=== PATIENT | female | born 1950 | race Caucasian/White ===

== ENCOUNTER → 2017-07-10 | Outpatient (CLI) | payer OTHER, MEDICARE | LOC: CIMAGING 08:21 | PROVIDERS: ATTEND Family Medicine | DX: Z12.31 Encounter for screening mammogram for malignant neoplasm of breast (principal) | CPT/HCPCS: G0202 ==

== ENCOUNTER → 2017-09-16 | Outpatient (CLI) | payer OTHER, MEDICARE | LOC: BRMIMAGING 08:34 | PROVIDERS: ATTEND Physician Assistant Medical | DX: Z13.820 Encounter for screening for osteoporosis (principal); Z82.62 Family history of osteoporosis; Z78.0 Asymptomatic menopausal state ==

== ENCOUNTER → 2018-07-13 | Outpatient (CLI) | payer OTHER, MEDICARE | LOC: CIMAGING 08:21 | PROVIDERS: ATTEND Family Medicine | DX: Z12.31 Encounter for screening mammogram for malignant neoplasm of breast (principal); Z80.3 Family history of malignant neoplasm of breast ==

== ENCOUNTER → 2018-07-23 | Outpatient (CLI) | payer OTHER, MEDICARE | LOC: SUPIMAGING 10:01 | PROVIDERS: ATTEND Physician Assistant Medical | DX: M25.561 Pain in right knee (principal); M22.2X1 Patellofemoral disorders, right knee | CPT/HCPCS: 73564-PN ==